=== PATIENT | female | born 1980 | race Caucasian/White ===

== ENCOUNTER 2024-12-02 08:02 | Emergency (ER) | payer BC, SELFPAY ==
[2024-12-02 08:12] VITALS: BP 162/93
[2024-12-02 08:43] LABS: % Basophils 0.3 % (0-2); % Eosinophils 1.6 % (0-6); % Immature Granulocytes 0.5 % (0-0.5); % Lymphocytes 15.8 % (20.5-51.1); % Monocytes 7.9 % (1.7-9.3); % Neutrophils 73.9 % (42.2-75.2); Absolute Eosinophils 0.2 10^3/uL (0-0.7); Absolute Immature Granulocytes 0.1 10^3/uL (0-0.05); Absolute Lymphocytes 1.5 10^3/uL (1.2-3.4); Absolute Monocytes 0.7 10^3/uL (0.1-0.6); Absolute Neutrophils 6.8 10^3/uL (1.4-6.5); Hemoglobin 12.5 g/dL (12.0-16.0); Mean Corp Hgb Conc. 32.9 g/dL (33.0-37.0); Mean Corpuscular Hgb 31.6 pg (27.0-31.0); Mean Corpuscular Volume 96.2 fL (81.0-99.0); Mean Platelet Volume 10.5 fL (7.4-10.4); Nucleated Red Blood Cells % 0 %; Platelet Count 234 10^3/uL (130-400); Red Blood Cell Count 3.95 10^6/uL (4.20-5.40); Red Cell Dist. Width 12.5 % (11.5-14.5); White Blood Cell Count 9.2 10^3/uL (4.8-10.8)
[2024-12-02 08:51] LABS: ALT (SGPT) 15 U/L (0-35); AST (SGOT) 15 U/L (14-36); Albumin 4.3 g/dl (3.5-5.0); Alkaline Phosphatase 73 U/L (38-126); Blood Urea Nitrogen 13 mg/dl (7-17); Calcium 9.1 mg/dl (8.4-10.2); Carbon Dioxide 28 mmol/L (22-30); Chloride 102 mmol/L (98-107); Glucose 113 mg/dl (70-99); HCG, Serum Qualitative Screen Negative; Potassium 4.1 mmol/L (3.5-5.1); Sodium 138 mmol/L (135-145); Total Bilirubin 0.9 mg/dl (0.2-1.3); Total Protein 6.8 g/dl (6.3-8.2); eGFR > 60.00
[2024-12-02 08:54] LABS: COVID-19 Antigen Negative (Negative)
--- NOTE | 2024-12-02 09:07 | ED.GENMED ---
History of Present Illness
General
Chief Complaint: Abdominal Pain
Time Seen by Provider: 12/02/24 09:07
History of Present Illness
History of Present Illness:
TIME OF INITIAL ENCOUNTER: 9:15 AM
HPI: The patient presents with left lower quadrant pain over the last couple days. She has no changes in her bowel habits. She has been having a cough of the last 2 weeks and when the cough started 2 weeks ago, she had a subjective fever.
Coughing makes her abdominal pain worse. She has not been vomiting. She has not had a colonoscopy but reports having a Cologuard in the past.
EXAM:
GENERAL: Well appearing in mild distress�she appears to be more uncomfortable when she flexes her torso
HEENT: Moist oral mucosa
CARDIOVASCULAR: No murmurs, normal heart rate, regular rhythm, No chest wall tenderness
PULMONARY: No respiratory distress, breath sounds are clear and equal
ABDOMEN: Soft with no peritoneal signs, moderate left lower quadrant tenderness
NEUROLOGIC: Excellent strength all extremities, no coordination deficits
PSYCHIATRIC: Appropriate mental status, normal insight and judgement
EXTREMITIES: Nontender, no edema, moves all extremities equally
SKIN: No rash, no lesions
NUMBER AND COMPLEXITY OF PROBLEMS ADDRESSED AT THE ENCOUNTER
� Chronic conditions affecting care: Asthma, has had uterine ablation
� Acute Exacerbation and/or Progression of Chronic Illness: This is an acute problem
� Differential Diagnosis includes: Oblique muscle strain from coughing, mesenteric adenitis, diverticulitis,
AMOUNT AND/OR COMPLEXITY OF DATA TO BE REVIEWED AND ANALYZED
� I performed an independent evaluation of and my interpretation is:
EKG:
CT: Inflammatory changes noted to the left lower quadrant/descending colon
X-rays: Chest x-ray unremarkable
Laboratory Studies: White count 9.2, hemoglobin 12.5, chemistries unremarkable, hCG negative, COVID-negative, flu negative
Other:
� Review of other/old records: The patient was seen here just in and was felt to have a thoracic myofascial strain
� Clinical information was obtained by an independent historian:
� Prescriptions/Medications Considered but not given: Offered analgesia however the patient declines
� Further testing considered but not performed:
RISK OF COMPLICATIONS AND/OR MORBIDITY OR MORTALITY OF PATIENT MANAGEMENT
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
� Discussion with other providers:
� Escalation of care including admission/observation vs risk of discharge considered: The patient appears somewhat uncomfortable and does have moderate tenderness�I have offered analgesia but patient declined. Will obtain CT
imaging.
ANY OTHER UPDATES:
1 PM: I reassessed patient. She appears fairly comfortable. Planning antibiotics for presumed diverticulitis.
Phy Exam
Physical Exam
Physical Exam:
See HPI
Course
Orders/Labs/Results
Orders:
Orders
12/02/24 08:15
Test Result ONCE
12/02/24 08:22
COVID-19 Antigen Urgent
Source: Nasal Swab
Complete Blood Count/With Diff Urgent
Comprehensive Metabolic Panel Urgent
HCG, Serum Qualitative Screen Urgent
Influenza A+B Rapid Molecular Urgent
CJ Source: Nasal Swab
Specimen Description:
12/02/24 09:18
CT Abd/pelvis W Iv Cont Urgent
Comment:
Reason For Exam: LLQ pain tender; had appendectomy
CR Chest - 2 Views Urgent
Comment:
Reason For Exam: cough
12/02/24 13:10
Amoxicillin 875 mg/Clav 125 mg [Augmentin 875 mg/125 mg] 1 tablet PO NOW STA
Abnormal Lab Results
12/02/24
08:22
RBC 3.95 L 10^6/uL
(4.20-5.40)
MCH 31.6 H pg
(27.0-31.0)
MCHC 32.9 L g/dL
(33.0-37.0)
MPV 10.5 H fL
(7.4-10.4)
Abs Immat Gran (auto) 0.1 H 10^3/uL
(0-0.05)
Absolute Neuts (auto) 6.8 H 10^3/uL
(1.4-6.5)
Absolute Monos (auto) 0.7 H 10^3/uL
(0.1-0.6)
Lymphocytes % 15.8 L %
(20.5-51.1)
Glucose 113 H mg/dl
(70-99)
12/02/24 08:22
12/02/24 08:22
Vital Signs
Initial and Last Documented VS:
Initial Vital Signs
Temp Pulse Resp BP Pulse Ox
36.8 C 85 18 162/93 97
12/02/24 08:12 12/02/24 08:12 12/02/24 08:12 12/02/24 08:12 12/02/24 08:12
Last Documented Vital Signs
Temp Pulse Resp BP Pulse Ox
36.8 C 85 18 162/93 97
12/02/24 08:12 12/02/24 08:12 12/02/24 08:12 12/02/24 08:12 12/02/24 08:12
*Critical Care Note
Total Time (30-74mins, 75-104mins- exclusive of procedures): Not Applicable
ED Attending Note
-
Portions of this chart may have been created with voice recognition software.� Occasional wrong word or��sound alike� substitutions may have occurred due to the inherent limitations of voice recognition software.
Discharge Plan
Departure
Patient Disposition: Home (Routine Discharge)
Date of Disposition: 12/02/24
Time of Disposition: 13:06
Patient with high blood pressure during this ER visit?: Yes
Discharge Problem:
Diverticulitis
Instructions: Diverticulitis (DC), BLOOD PRESSURE
Prescriptions:
New
amoxicillin-pot clavulanate 875-125 mg tablet
1 tab PO BID Qty: 14 0RF
Referrals:
Elma Crowe MD [Active] - Next open appointment
Familia Huertas MD [Family Provider] -
Stand Alone Forms: Return to Work
Activity Restrictions/Additional Instructions:
I recommend that you follow-up your primary care doctor for reassessment. I also recommend that you follow-up with GI as well. I have given you the contact information for local GI doctor. Chest x-ray is clear. The CAT scan does show
inflammation of the left lower quadrant near the descending colon. The radiologist also noted a 6.7 cm area in the right lobe of the liver which 'could be related to fatty sparing however could be further evaluated with follow-up abdominal
ultrasound'. If symptoms do not improve, your primary care doctor may consider pelvic ultrasound as well. Return here if worse or other concerns.
Interventions
Interventions:
*Risk Screen - Suicide Last Done: 12/02/24 08:12
*General Assessment Last Done: 12/02/24 08:12
*Neglect/Abuse Screening Last Done: 12/02/24 08:12
*ED- Fall Risk Assessment Last Done: 12/02/24 09:23
*ED COVID-19 Vaccine History Last Done: 12/02/24 09:23
BQ-Mlpbze-Rnvbmcqzkw Assessment Last Done: 12/02/24 09:23
Discharge Date and Time
Print Language: [place]
[2024-12-02 09:23] VITALS: BMI 36.4
[2024-12-02] MEDS: AUGMENTIN 875 MG/125 MG 1 TABLET PO (13:42)
[2024-12-02 13:46] VITALS: BP 160/85
== END 2024-12-02 13:47 | disposition home or self-care (01) ==
LOC: EMR 08:02
PROVIDERS: EMERGENCY PHYSICIAN Emergency Medicine; FAMILY PHYSICIAN Family Medicine
DX: K57.32 Diverticulitis of large intestine without perforation or abscess without bleeding (principal); J45.909 Unspecified asthma, uncomplicated; Z11.52 Encounter for screening for COVID-19
CPT/HCPCS: 99284; 71046; 74177; 80053; 84703; 85025; 87502; 87811; Q9967